=== PATIENT | female | born 1985 | race Caucasian/White ===

== ENCOUNTER 2022-02-12 10:33 | Emergency (ER) | payer SELFPAY ==
[~2022-02-12] VITALS: Ht 172.7 cm; Wt 72.6 kg
--- NOTE | 2022-02-12 10:48 | NUR ---
BIB , "WE CAME BACK FROM [place] YESTERDAY W ABDOMINAL PAIN/BLOATING, NAUSEA AND VOMITING. I THINK WE HAD FOOD POISONING". TO ER BED 3, HOKED TO MONITOR, TEMP AT 100.4F. CHANGED TO HOSP GOWN, COOLING MEASURES DONE. BREATHING EVEN AND UNLABORED. AWAITING MD HOLLIS
--- NOTE | 2022-02-12 10:59 | NUR ---
DR DE LA O AT BEDSIDE
--- NOTE | 2022-02-12 11:19 | NUR ---
FAMILY: JL [phone]
[2022-02-12] MEDS ORDERED: ONDANSETRON HCL/PF 4 MG/2 ML VIAL ONE (11:32)
[2022-02-12 11:43] LABS: CALCIUM, SERUM 8.4 mg/dL (8.5-10.1); CREATININE 0.9 mg/dL (0.6-1.3); POTASSIUM 3.7 mmol/L (3.5-5.1)
[2022-02-12] MEDS: ONDANSETRON HCL/PF 4 MG/2 ML VIAL IVP ONE (11:47)
[2022-02-12] MEDS: IV NS 0.9% 1,000 ML BAG IV ONE (11:47)
--- NOTE | 2022-02-12 11:47 | NUR ---
URINE SAMPLE COLLECTED AND SENT TO LAB
[2022-02-12 11:48] LABS: ALBUMIN 3.6 g/dL (3.4-5.0); BILIRUBIN,DIRECT 0.1 mg/dL (0.0-0.2); BILIRUBIN,TOTAL 0.5 mg/dL (0.2-1.0); TOTAL PROTEIN, SERUM 7.2 g/dL (6.4-8.2)
[2022-02-12 12:01] LABS: HEMATOCRIT 41 % (33-45); HEMOGLOBIN 13.6 g/dL (11.5-14.8); MEAN CORPUSCULAR HGB CONC 33 g/dl (31.0-36.0); MEAN CORPUSCULAR VOLUME 87 fL (82-100); PLATELET COUNT (AUTO) 177 K/uL (150-450); RED BLOOD CELL COUNT(AUTO) 4.76 MIL/uL (4.0-5.2); WHITE BLOOD COUNT (AUTO) 13.6 K/uL (4.3-11.0)
[2022-02-12 12:31] LABS: BILIRUBIN,URINE NEGATIVE (NEGATIVE); COLOR,URINE YELLOW (YELLOW); LEUKOCYTE ESTERASE ,URINE NEGATIVE (NEGATIVE); NITRITE, URINE NEGATIVE (NEGATIVE); PROTEIN,URINE TRACE mg/dl (NEGATIVE); UGLUCOSE NEGATIVE (NEGATIVE); UROBILINOGEN,URINE 0.2 EU/dL (0.2)
[2022-02-12 13:05] LABS: BACTERIA,URINE Few /HPF (None Seen); SQUAMOUS EPITHELIAL CELL,UR Few /HPF (None Seen); WBC,URINE 0-2 /HPF (0-3)
[2022-02-12] MEDS ORDERED: ACETAMINOPHEN ES 500 MG TABLET ONE (13:29)
[2022-02-12] MEDS: ACETAMINOPHEN 325 MG TABLET PO ONE (13:30)
[2022-02-12 13:56] LABS: BAND % (MANUAL) 13 % (0.0-5.0); LYMPHOCYTES % (MANUAL) 3 % (16-48); MONOCYTES % (MANUAL) 7 % (0-11.0); NEUTROPHILS % (MANUAL) 77 (42-76)
--- NOTE | 2022-02-12 14:40 | NUR ---
PHLEB AT BEDSIDE FOR LACTIC ACID AND BLOOD CULTURE
[2022-02-12] MEDS ORDERED: SULF1TAB48 PO (14:41)
[2022-02-12] MEDS ORDERED: ONDA4TAB5 PO (15:51)
--- NOTE | 2022-02-12 16:00 | NUR ---
IV removed. Catheter intact and site benign. Pressure and 4x4 applied to site. No bleeding noted.Patient discharged to home in stable condition. Written and verbal after care instructions given. Patient verbalizes understanding of instruction.
[2022-02-12 16:01] VITALS: BP 123/62
== END 2022-02-12 16:01 | disposition home or self-care (01) ==
LOC: ER 10:34
DX: R11.11 Vomiting without nausea (principal); D72.825 Bandemia
CPT/HCPCS: 36415; 80048; 80076; 81001; 83605; 83690; 84703; 85007; 85025; 87040 ×2; 96361; 96374; 99283; J2405; J7030